=== PATIENT | female | born 1960 | race Caucasian/White ===

== ENCOUNTER 2019-03-28 14:52 | Inpatient (IN) | payer OTHER ==
[~2019-03-28] VITALS: Ht 152.4 cm; Wt 63.0 kg
[2019-03-28] VITALS (12 sets, daily range): BP systolic 100–117; BP diastolic 45–56; PULSE 82–101; RESP 11–23; Ht 152.4 cm; Wt 63.0 kg
[~2019-03-28 14:52] MED LIST: PIPER-TAZO 3.375 GM IV (PMX) 100 ML IVPB SCH
[2019-03-28] MEDS ORDERED: morphine 4 MG/ML VIAL IV STA (15:47)
[2019-03-28] MEDS ORDERED: ONDANSETRON 4 MG INJ IV STA (15:47)
[2019-03-28] MEDS ORDERED: SOD CHLORIDE 0.9% 1,000 ML IV STA (15:47)
--- NOTE | 2019-03-28 15:53 | ERD ---
ER Documentation Chief Complaint Chief Complaint ABD PAIN WITH NAUSEA X 3 DAYS HPI This is a 50-year-old female that presents the emergency department complaining of nausea and abdominal pain for the past 3 days. She states that the pain has been intermittent. The pain is most prominent in the right lower quadrant. When the pain initially started she indicated was more prominent in the epigastric region however is now completely radiated to the right lower quadrant. Her past surgical history includes a cholecystectomy. The patient went to urgent care clinic yesterday and was given Zofran. However she states this is not improved her symptoms. She had no diarrhea. She denies any recent travel or prolonged immobilization has no shortness of breath at rest or exertion. She denies any chest pain or pressure. She states the pain in the left lower quadrant is a sharp shooting pain. Will change in intensity between 4 and 10 out of 10 in intensity. There is no alleviating or exacerbating factors to the pain. She had a decrease in appetite has not had a bowel movement in 2 days but also states she has not had any oral intake due to the severity of the pain. She did not take any analgesic medication at home. ROS All systems reviewed and are negative except as per history of present illness. Medications Home Meds No Active Prescriptions or Reported Meds Allergies Allergies: Coded Allergies: No Known Allergies (Verified Allergy, Unknown, 03/28/19) PMhx/Soc History of Surgery: No Anesthesia Reaction: No Hx Neurological Disorder: No Hx Respiratory Disorders: No Hx Cardiac Disorders: No Hx Psychiatric Problems: No Hx Miscellaneous Medical Probl: No Hx Alcohol Use: No Hx Substance Use: No Hx Tobacco Use: No Physical Exam Vitals Vital Signs Date Temp Pulse Resp B/P (MAP) Pulse Ox O2 O2 Flow FiO2 Time Delivery Rate 03/28/19 93 103/50 93 Room Air 17:45 (67) 03/28/19 81 18 96/63 (74) 100 Room Air 16:14 03/28/19 98.1 71 16 146/79 99 15:03 (101) Physical Exam Constitutional:Well-developed. Well-nourished. HEENT:Normocephalic. Atraumatic.Pupils were equal round reactive to light. Dry mucous membranes.No tonsillar exudates. Neck: No nuchal rigidity. No lymphadenopathy. No posterior cervical spine tenderness or step-offs. Respiratory: Not using accessory muscles of respiration.Lungs were clear to auscultation bilaterally. No rhonchi. No rales. No wheezing. Cardiovascular: Regular rate regular rhythm.No murmurs. No rubs were appreciated.S1, S2 normal. Distal pulses are palpable 2+ bilaterally. GI: Abdomen was soft. Right lower quadrant tenderness. Positive psoas sign positive obturator's non Distended. No pulsatile abdominal masses or bruits. No rebound. No guarding. Bowel sounds were present and normal. Muscle skeletal: Full range of motion of both the upper and lower extremities bilaterally.Normal muscle tone.No assymetrical calf tenderness or swelling. Skin: No petechia, no purpura. No lesions on the palms or the soles of the feet. No maculopapular rash. NEURO: Patient was alert, awake, orientated x3.No facial droop. Gait observed and normal with no ataxia.Speech had regular rate and rhythm. No focal neurological deficits. Result Diagram: 03/28/19 1556 03/28/19 1556 Results 24 hrs Laboratory Tests Test 03/28/19 15:56 White Blood Count 24.3 10^3/ul Red Blood Count 4.67 10^6/ul Hemoglobin 13.8 g/dl Hematocrit 42.3 % Mean Corpuscular Volume 90.6 fl Mean Corpuscular Hemoglobin 29.6 pg Mean Corpuscular Hemoglobin Concent 32.6 g/dl Red Cell Distribution Width 12.4 % Platelet Count 252 10^3/UL Mean Platelet Volume 11.5 fl Immature Granulocytes % 0.500 % Neutrophils % % Segmented Neutrophils % (Manual) 77 % Band Neutrophils % (Manual) 11 % Lymphocytes % % Lymphocytes % (Manual) 6 % Monocytes % % Monocytes % (Manual) 6 % Eosinophils % % Basophils % % Nucleated Red Blood Cells % 0.0 /100WBC Immature Granulocytes # 0.120 10^3/ul Neutrophils # 10^3/ul Neutrophils # (Manual) 19.3 10^3/ul Band Neutrophils # 2.6 10^3/ul Lymphocytes (Manual) 1.4 10^3/ul Lymphocytes # 10^3/ul Monocytes # 10^3/ul Monocytes # (Manual) 1.4 10^3/ul Eosinophils # 10^3/ul Basophils # 10^3/ul Nucleated Red Blood Cells # 10^3/ul Platelet Estimate NORMAL Giant Platelets 2 % Prothrombin Time 14.9 Sec Prothrombin Time Ratio 1.2 INR International Normalized Ratio 1.16 Activated Partial Thromboplast Time 34.7 Sec Urine Color RANJITH Urine Clarity CLOUDY Urine pH 5.0 Urine Specific [place] 1.045 Urine Ketones TRACE mg/dL Urine Nitrite NEGATIVE mg/dL Urine Bilirubin 1+ mg/dL Urine Urobilinogen 2+ mg/dL Urine Leukocyte Esterase TRACE Epifanio/ul Urine Microscopic RBC 12 /HPF Urine Microscopic WBC 26 /HPF Urine Squamous Epithelial Cells MODERATE /HPF Urine Bacteria FEW /HPF Urine Mucus MANY /HPF Urine Hemoglobin NEGATIVE mg/dL Urine Glucose NEGATIVE mg/dL Urine Total Protein 2+ mg/dl Sodium Level 138 mmol/L Potassium Level 3.8 mmol/L Chloride Level 100 mmol/L Carbon Dioxide Level 27 mmol/L Anion Gap 11 Blood Urea Nitrogen 17 mg/dl Creatinine 1.01 mg/dl Est Glomerular Filtrat Rate mL/min 56 mL/min Glucose Level 134 mg/dl Calcium Level 9.6 mg/dl Total Bilirubin 0.9 mg/dl Direct Bilirubin 0.00 mg/dl Indirect Bilirubin 0.9 mg/dl Aspartate Amino Transf (AST/SGOT) 112 IU/L Alanine Aminotransferase (ALT/SGPT) 106 IU/L Alkaline Phosphatase 148 IU/L Troponin I < 0.012 ng/ml Total Protein 8.1 g/dl Albumin 4.4 g/dl Globulin 3.70 g/dl Albumin/Globulin Ratio 1.18 Amylase Level 68 U/L Lipase 40 U/L Current Medications Medications Dose Sig/Zaheer Start Time Status Last (Trade) Ordered Route PRN Stop Time Admin Dose Reason Admin Sodium 1,000 ml @ Q1H STAT 03/28/19 DC 03/28/19 Chloride 1,000 mls/hr IV 15:47 03/28/19 16:06 16:46 Morphine 4 mg ONCE STAT 03/28/19 DC 03/28/19 Sulfate IV 15:47 03/28/19 16:06 (morphine) 15:52 Ondansetron 4 mg ONCE STAT 03/28/19 DC 03/28/19 HCl (Zofran IV 15:47 03/28/19 16:06 Inj) 15:52 IV Flush 10 ml STK-MED 03/28/19 DC (NS 10 ml) ONCE .ROUTE 17:22 03/28/19 17:23 Sodium 100 ml @ ud STK-MED 03/28/19 DC Chloride ONCE .ROUTE 17:22 03/28/19 17:23 Iohexol 150 ml STK-MED 03/28/19 DC (Omnipaque ONCE .ROUTE 17:03/28/19 300mg/ ml) 17:23 Piperacillin 100 ml @ ONCE ONCE 03/28/19 03/28/19 Sod/ 200 mls/hr IVPB 18:00 03/28/19 18:02 Tazobactam 18:29 Sod Procedures/MDM This patient presented to the emergency department with abdominal pain and was seen and evaluated by myself. My differential diagnosis included but was not limited to abdominal aortic aneurysm, appendicitis, pancreatitis, perforated peptic ulcer, perforated viscus, Boerhaave's syndrome or visceral pain such as diverticulitis, DKA, esophagitis, hepatitis or bowel obstruction. The patient was placed on a awake overnight monitor, continuous pulse oximetry, and IV access was established by nursing staff. The patient received intravenous morphine and Zofran. I obtained a 12-lead EKG tracing to her left atypical microinfarction. 12 Lead EKG tracing ordered and reviewed by myself showed: Normal sinus rhythm of 72 bpm and no arrhythmia. RI interval normal. QRS duration normal. No ST segment elevation No ST segment depression. No changes consistent with acute ischemia. The patient had a CT scan that was positive for appendicitis with no perforation. I spoke with Dr. Butt. The patient had leukocytosis. She was given IV Zosyn. She will be going emergently to the operating room given that her symptoms have been present for over 3 days. She will be admitted for observation to the medical surgical floor under the care of the hospitalist Dr. Bai. The patient was made n.p.o. and has not eaten for roughly 24 hours. Critical Care: Time: 45 minutes Treatments/Evaluations: Close monitoring and treatment of unstable vital signs, cardiorespiratory, and neurologic status, while maintaining tight balance of fluid, respiratory, and cardiac interventions. Time does not include performing any of the above billable procedures. Departure Diagnosis: Primary Impression: Appendicitis Appendicitis type: acute appendicitis Acute appendicitis type: unspecified acute appendicitis type Qualified Codes: K35.80 - Unspecified acute appendicitis Condition: Serious FLEX POLANCO MD Mar 28, 2019 15:53
[2019-03-28] MEDS ORDERED: IOHEXOL 300MG/ML 150 ML BTL ONE (17:22)
[2019-03-28] MEDS ORDERED: SOD CHLORIDE 0.9% 100 ML ONE (17:22)
[2019-03-28] MEDS ORDERED: PIPER-TAZO 3.375 GM IV (PMX) 100 ML IVPB ONE (18:00)
--- NOTE | 2019-03-28 18:07 | CONS ---
Assessment/Plan Assessment/Plan Assessment/Plan (Daily) Acute appendicitis I discussed laparoscopic, possible open, appendectomy with the patient All benefits, risks, alternatives discussed All questions answered Consultation Date/Type/Reason Admit Date/Time Date/Time of Note DATE: 03/28/19 TIME: 18:07 Hx of Present Illness The patient is a 58 yo F developed epigastric abdominal pain starting Friday night. She thought it was related to what she ate. However, the pain began to localize the right lower quadrant. The pain persisted and was worse with move ment. She has anorexia since Friday. She had emesis but no vomiting. She denies constipation or diarrhea. Denies fevers or chills. 14 point review of systems was performed. Pertinent negatives and positives per HPI. Past Medical History Home Meds No Active Prescriptions or Reported Meds Medications Current Medications Piperacillin Sod/ Tazobactam Sod 100 ml @ 200 mls/hr ONCE ONCE IVPB Last administered on 03/28/19at 18:02; Admin Dose 200 MLS/HR; Start 03/28/19 at 18:00; Stop 03/28/19 at 18:29 Allergies: Coded Allergies: No Known Allergies (Verified Allergy, Unknown, 03/28/19) Past Surgical History Past Surgical Hx: other Family History Significant Family History: no pertinent family hx Social History Alcohol Use: none Smoking Status: Never smoker Drug Use: none Exam/Review of Systems Exam Vitals Vital Signs Date Temp Pulse Resp B/P (MAP) Pulse Ox O2 O2 Flow FiO2 Time Delivery Rate 03/28/19 93 103/50 93 Room Air 17:45 (67) 03/28/19 18 16:14 03/28/19 98.1 15:03 Constitutional: alert, oriented, well developed Psych: no complaints Head: normocephalic, atraumatic Eyes: nl conjunctiva Neck: supple Respiratory: clear to auscultation, normal air movement Cardiovascular: regular rate and rhythm Gastrointestinal: soft, other (Nondistended but significant right lower quadrant tenderness) Musculoskeletal: nl extremities to inspection, nl gait and stance Neurological: VIDEO LIBRARY ASSISTANT II-XII intact, nl mental status Skin: nl turgor Lymph: nl lymph nodes Results Result Diagram: 03/28/19 1556 03/28/19 1556 Results 24hrs Laboratory Tests Test 03/28/19 15:56 White Blood Count 24.3 #H Red Blood Count 4.67 Hemoglobin 13.8 Hematocrit 42.3 Mean Corpuscular Volume 90.6 Mean Corpuscular Hemoglobin 29.6 Mean Corpuscular Hemoglobin Concent 32.6 Red Cell Distribution Width 12.4 Platelet Count 252 Mean Platelet Volume 11.5 H Immature Granulocytes % 0.500 H Neutrophils % Segmented Neutrophils % (Manual) 77 Band Neutrophils % (Manual) 11 H Lymphocytes % Lymphocytes % (Manual) 6 L Monocytes % Monocytes % (Manual) 6 Eosinophils % Basophils % Nucleated Red Blood Cells % 0.0 Immature Granulocytes # 0.120 H Neutrophils # Neutrophils # (Manual) 19.3 H Band Neutrophils # 2.6 H Lymphocytes (Manual) 1.4 Lymphocytes # Monocytes # Monocytes # (Manual) 1.4 H Eosinophils # Basophils # Nucleated Red Blood Cells # Platelet Estimate NORMAL Giant Platelets 2 H Prothrombin Time 14.9 Prothrombin Time Ratio 1.2 INR International Normalized Ratio 1.16 Activated Partial Thromboplast Time 34.7 Urine Color RANJITH Urine Clarity CLOUDY A Urine pH 5.0 Urine Specific [place] 1.045 H Urine Ketones TRACE A Urine Nitrite NEGATIVE Urine Bilirubin 1+ H Urine Urobilinogen 2+ H Urine Leukocyte Esterase TRACE A Urine Microscopic RBC 12 H Urine Microscopic WBC 26 H Urine Squamous Epithelial Cells MODERATE Urine Bacteria FEW A Urine Mucus MANY A Urine Hemoglobin NEGATIVE Urine Glucose NEGATIVE Urine Total Protein 2+ H Sodium Level 138 Potassium Level 3.8 Chloride Level 100 Carbon Dioxide Level 27 Anion Gap 11 Blood Urea Nitrogen 17 Creatinine 1.01 H Est Glomerular Filtrat Rate mL/min 56 L Glucose Level 134 Calcium Level 9.6 Total Bilirubin 0.9 Direct Bilirubin 0.00 Indirect Bilirubin 0.9 Aspartate Amino Transf (AST/SGOT) 112 H Alanine Aminotransferase (ALT/SGPT) 106 H Alkaline Phosphatase 148 H Troponin I < 0.012 Total Protein 8.1 Albumin 4.4 Globulin 3.70 H Albumin/Globulin Ratio 1.18 Amylase Level 68 Lipase 40 Imaging Imaging Patient: VALENTINA HAMPTON : 1960 Age: 58 Sex: F MR #: [id number] DOS: 03/28/19 1547 Ordering MD: FLEX POLANCO MD Location: E/R Room/Bed: PROCEDURE: CT Abdomen and pelvis with contrast. CLINICAL INDICATION: Abdominal pain. TECHNIQUE: CT scan of the abdomen and pelvis with contrast was performed on a multi-detector high-resolution CT scanner. The patient was scanned following the uncomplicated administration of 100 cc of Omnipaque 300 intravenous contrast. Coronal and sagittal reformatted images were obtained from the axial source images. Images were reviewed on a high-resolution PACS workstation. DICOM images are available. One or more of the following dose reduction techniques were used: - Automated exposure control. - Adjustment of the mA and/or kV according to patient size. - Use of iterative reconstruction technique. Exam CTD/vol = 7.58 mGy. Total exam DLP = 439.89 mGy-cm. COMPARISON: None. FINDINGS: Evaluation of the lung bases demonstrates no pleural or parenchymal disease. Abdomen: The liver is normal in size. There is a cyst within the left lobe of the liver measuring 1.6 x 2.6 cm. The patient status post cholecystectomy with mild dilatation of the biliary tree. The spleen, pancreas and bilateral adrenal glands are within normal limits. Bilateral kidneys are normal in size with symmetric enhancement. There are small right renal cysts. No hydronephrosis or hydroureter. There is no retroperitoneal adenopathy. The abdominal aorta is of normal caliber. There is a distended and thick-walled appendix extending medial to the cecum measuring up to 15 mm in diameter with mild to moderate adjacent stranding. There is no bowel obstruction or free air. There are scattered sigmoid diverticuli. Pelvis: The bladder is unremarkable. The uterus and adnexa are within normal limits. There is moderate pelvic stranding and mild free fluid. There is no significant pelvic adenopathy. Evaluation of the osseous structures demonstrates no suspicious lytic or blastic lesion. IMPRESSION: Appendicitis. Moderate pelvic stranding and mild free fluid. Scattered sigmoid diverticuli. Hepatic cyst. Status post cholecystectomy with mild dilatation of the biliary tree. Medications Medication Current Medications Piperacillin Sod/ Tazobactam Sod 100 ml @ 200 mls/hr ONCE ONCE IVPB Last administered on 03/28/19at 18:02; Admin Dose 200 MLS/HR; Start 03/28/19 at 18:00; Stop 03/28/19 at 18:29 AMOS ARNOLD MD Mar 28, 2019 18:07
--- NOTE | 2019-03-28 18:51 | HP ---
Date/Time of Note Date/Time of Note DATE: 03/28/19 TIME: 18:42 Assessment/Plan VTE Prophylaxis SCD applied (from Nsg): Yes Pharmacological prophylaxis: NA/contraindicated Pharm contraindication: surgical contra Lines/Catheters IV Catheter Type (from Nrsg): Saline Lock Assessment/Plan Assessment/Plan 1. Acute appendicitis - Seen on CT scan A/P - Surgery on board and plans for OR tonight - Will keep NPO, IVF and empiric antibiotics - cleared from medical standpoint for surgical intervention. Tolerated anesthesia in the past and no history of coagulopathy - pain control 2. leukocytosis - secondary to #1 3. elevated LFT - most likely secondary to #1 and dehydration - will trend 4. ?UTI - asymptomatic - UA noted and urine cx ordered - already on antibiotics 5. Diet - NPO 6. Disposition - Admit to med/surg for surgical intervention for acute appendicitis. Following surgery will advance diet and once tolerating and remains stable, d/c home after cleared by general surgery Result Diagram: 03/28/19 1556 03/28/19 1556 Results 24hrs Laboratory Tests Test 03/28/19 15:56 White Blood Count 24.3 #H Red Blood Count 4.67 Hemoglobin 13.8 Hematocrit 42.3 Mean Corpuscular Volume 90.6 Mean Corpuscular Hemoglobin 29.6 Mean Corpuscular Hemoglobin Concent 32.6 Red Cell Distribution Width 12.4 Platelet Count 252 Mean Platelet Volume 11.5 H Immature Granulocytes % 0.500 H Neutrophils % Segmented Neutrophils % (Manual) 77 Band Neutrophils % (Manual) 11 H Lymphocytes % Lymphocytes % (Manual) 6 L Monocytes % Monocytes % (Manual) 6 Eosinophils % Basophils % Nucleated Red Blood Cells % 0.0 Immature Granulocytes # 0.120 H Neutrophils # Neutrophils # (Manual) 19.3 H Band Neutrophils # 2.6 H Lymphocytes (Manual) 1.4 Lymphocytes # Monocytes # Monocytes # (Manual) 1.4 H Eosinophils # Basophils # Nucleated Red Blood Cells # Platelet Estimate NORMAL Giant Platelets 2 H Prothrombin Time 14.9 Prothrombin Time Ratio 1.2 INR International Normalized Ratio 1.16 Activated Partial Thromboplast Time 34.7 Urine Color RANJITH Urine Clarity CLOUDY A Urine pH 5.0 Urine Specific [place] 1.045 H Urine Ketones TRACE A Urine Nitrite NEGATIVE Urine Bilirubin 1+ H Urine Urobilinogen 2+ H Urine Leukocyte Esterase TRACE A Urine Microscopic RBC 12 H Urine Microscopic WBC 26 H Urine Squamous Epithelial Cells MODERATE Urine Bacteria FEW A Urine Mucus MANY A Urine Hemoglobin NEGATIVE Urine Glucose NEGATIVE Urine Total Protein 2+ H Sodium Level 138 Potassium Level 3.8 Chloride Level 100 Carbon Dioxide Level 27 Anion Gap 11 Blood Urea Nitrogen 17 Creatinine 1.01 H Est Glomerular Filtrat Rate mL/min 56 L Glucose Level 134 Calcium Level 9.6 Total Bilirubin 0.9 Direct Bilirubin 0.00 Indirect Bilirubin 0.9 Aspartate Amino Transf (AST/SGOT) 112 H Alanine Aminotransferase (ALT/SGPT) 106 H Alkaline Phosphatase 148 H Troponin I < 0.012 Total Protein 8.1 Albumin 4.4 Globulin 3.70 H Albumin/Globulin Ratio 1.18 Amylase Level 68 Lipase 40 HPI/ROS Admit Date/Time Admit Date/Time 03/28/19 Hx of Present Illness 58 yo F with no significantly past medical history presents to ED with worsening abdominal pain. Patient states she started having epigastric pain on Friday after eating popcorn with spice sprinkled on top. Pain traveled to the lower quadrants, nothing made the pain better, worse with movement. She has not been able to eat since Friday due to the pain. She admits to associated nausea but no vomiting. Denies any chest pain, shortness of breath, dizziness, cons tipation, diarrhea, or urinary issues. ROS All 12 systems reviewed and pertinent positives as per HPI. All others negative. Constitutional: nausea; No chills, No fatigue Eyes: No discharge ENT: No congestion Respiratory: No cough, No shortness of breath, No sputum, No wheezing Cardiovascular: No chest pain, No lightheadedness, No palpitations Gastrointestinal: pain, nausea; No constipation, No diarrhea, No vomiting Genitourinary: no complaints Musculoskeletal: no complaints Skin: No laceration, No rash Neurologic: No confusion, No focal-weakness, No syncope Endocrine: no complaints Lymphatic: no complaints Psychological: nl mood/affect Immunologic: no complaints PMH/Family/Social Past Medical History Medical History: no pertinent history Coded Allergies: No Known Allergies (Verified Allergy, Unknown, 03/28/19) Past Surgical History Past Surgical Hx: cholecystectomy, other Family History Significant Family History: no pertinent family hx Social History Alcohol Use: none Smoking Status: Never smoker Drug Use: none Exam/Review of Systems Vital Signs Vitals Vital Signs Date Temp Pulse Resp B/P (MAP) Pulse Ox O2 O2 Flow FiO2 Time Delivery Rate 03/28/19 97.9 80 18 95/75 (82) 100 Room Air 18:15 Exam Exam General: Patient currently lying in bed, mild distress due to pain HEENT: Atraumatic, normocephalic. The pupils are equal, round and reactive. Extraocular motor are intact Neck: Supple with full range of motion. No rigidity or meningismus Chest: Nontender Lungs: Clear to auscultation bilaterally no crackles rales or wheezing Heart: Normal S1-S2, Regular rhythm and rate. No murmur, S3, or S4 Abdomen: Soft , tender lower quadrants, nondistended , bowel sounds are present. No guarding no rebound tenderness , No masses or organomegaly. No costovertebral temporal angle mass Extremities: moving all extremities.no edema, cyanosis, or clubbing Skin: warm, dry, no rashes or lesions Neurologic: Normal mental status, speech normal, cranial nerves II through XII are intact, motor and sensation intact Additional Comments No home medications PROCEDURE: CT Abdomen and pelvis with contrast. CLINICAL INDICATION: Abdominal pain. TECHNIQUE: CT scan of the abdomen and pelvis with contrast was performed on a multi-detector high-resolution CT scanner. The patient was scanned following the uncomplicated administration of 100 cc of Omnipaque 300 intravenous contrast. Coronal and sagittal reformatted images were obtained from the axial source images. Images were reviewed on a high-resolution PACS workstation. DICOM images are available. One or more of the following dose reduction techniques were used: - Automated exposure control. - Adjustment of the mA and/or kV according to patient size. - Use of iterative reconstruction technique. Exam CTD/vol = 7.58 mGy. Total exam DLP = 439.89 mGy-cm. COMPARISON: None. FINDINGS: Evaluation of the lung bases demonstrates no pleural or parenchymal disease. Abdomen: The liver is normal in size. There is a cyst within the left lobe of the liver measuring 1.6 x 2.6 cm. The patient status post cholecystectomy with mild dilatation of the biliary tree. The spleen, pancreas and bilateral adrenal glands are within normal limits. Bilateral kidneys are normal in size with symmetric enhancement. There are small right renal cysts. No hydronephrosis or hydroureter. There is no retroperitoneal adenopathy. The abdominal aorta is of normal caliber. There is a distended and thick-walled appendix extending medial to the cecum measuring up to 15 mm in diameter with mild to moderate adjacent stranding. There is no bowel obstruction or free air. There are scattered sigmoid diverticuli. Pelvis: The bladder is unremarkable. The uterus and adnexa are within normal limits. There is moderate pelvic stranding and mild free fluid. There is no significant pelvic adenopathy. Evaluation of the osseous structures demonstrates no suspicious lytic or blastic lesion. IMPRESSION: Appendicitis. Moderate pelvic stranding and mild free fluid. Scattered sigmoid diverticuli. Hepatic cyst. Status post cholecystectomy with mild dilatation of the biliary tree. .Alex Wilson MD, Date Time Electronically viewed and signed by .Alex Wilson MD, on 03/28/2019 17:57 TOMI AMOR MD Mar 28, 2019 18:51
[2019-03-28] MEDS ORDERED: ONDANSETRON 4 MG INJ IV PRN ×3 (19:00→19:30)
[2019-03-28] MEDS ORDERED: HYDROCODONE/APAP (5/325) TAB PO PRN ×2 (19:00)
[2019-03-28] MEDS ORDERED: ACETAMINOPHEN 325 MG TAB PO PRN (19:00)
[2019-03-28] MEDS ORDERED: NACL 0.9% 3 ML SYG IV SCH (19:00)
[2019-03-28] MEDS ORDERED: morphine 2 MG INJ IV PRN ×2 (19:00→19:30)
[2019-03-28] MEDS ORDERED: LIDOCAINE 1%/EPI (1:100,000) (MDV) 20 ML ONE (19:01)
[2019-03-28] MEDS ORDERED: BUPIVACAINE 0.25% (MPF) 30 ML INJ ONE (19:01)
--- NOTE | 2019-03-28 19:06 | SIPON ---
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
--- NOTE | 2019-03-28 19:10 | OPR ---
Date/Time of Note Date/Time of Note DATE: 03/28/19 TIME: 19:08 Operative Report Preoperative Diagnosis Acute appendicitis Postoperative Diagnosis Same Operation/Procedure Performed Laparoscopic appendectomy Surgeon see signature line Lath Tier None Anesthesia Type: general Anesthesiologist: LARRY HEWITT MD Estimated Blood Loss: minimal Transfusion none Specimen Appendix Grafts/Implants none Tubes/Drains 19 Chinese round Jeffrey drain in the right lower quadrant and pelvis Complications none Pt Condition Post Procedure: stable Disposition: PACU Indications The patient is a 58-year-old female with acute appendicitis. I discussed laparoscopic, possible open, appendectomy with the patient. All benefits, risks, alternatives discussed in detail. All questions were answered. The patient elected to proceed. Procedure Description The patient was brought to operative room placed supine on the table. After preop antibiotics and SCDs were applied, the patient was intubated. The abdomen was cleaned, prepped, draped in usual sterile fashion. All incisions were infiltrated with half percent lidocaine with epinephrine. A 5 mm incision was made in the umbilicus. Using a 5 by laparoscope obtained trocar, the abdomen was was entered and insufflated to 15 mmHg CO2. The following trochars in place and direct vision: A right lower quadrant 5 mm left lower quadrant 12 mm There was a fair amount of omentum adherent to the right lower quadrant. This was brought up bluntly. I then saw the cecum and the appendix emanating from the cecum. The appendix was entering the pelvis underneath the right ovary. The appendix was then bluntly brought out from the pelvis. At this point, noted there was a perforation of the appendix with fair amount of pus in the pelvis. The the base was not involved. I made a rent through the mesentery at the base of the appendix. I then divided the base of the appendix to the cecum with a 35 mm Endo linear cutter white load. . I was able to elevate the appendix. The mesentery was then divided with a 35 mm Endo linear cutter white load. The appendix was placed in Endo Catch bag removed and the 12 mm trocar site. I irrigated out the right lower quadrant and pelvis until effluent was clear. I visualized the staple lines. They were hemostatic. Due to the pus and perforation, I placed a 19 Chinese round Jeffrey in the right l ower quadrant pelvis. It exited through the right lower quadrant trocar site was sutured the skin with a 2-0 nylon. I desufflated the abdomen and removed all trochars. The fascia of the 12 mm trocar site was closed with 0 Vicryl. Skin incisions were closed with 4-0 Monocryl, Mastisol, and Steri-Strips marked muscle Steri-Strips. The patient tolerated the procedure well, was extubated ER, and transferred to the recovery room in stable condition. AMOS ARNOLD MD Mar 28, 2019 19:10
[2019-03-28] MEDS ORDERED: FENTAnyl 50 MCG/ML VIAL ONE (19:25)
[2019-03-28] MEDS ORDERED: ROCURONIUM 50 MG INJ ONE (19:25)
[2019-03-28] MEDS ORDERED: ROPIVACAINE 0.2% 20 ML VIAL ONE (19:25)
[2019-03-28] MEDS ORDERED: PROPOFOL 20 ML ONE (19:25)
[2019-03-28] MEDS ORDERED: ROPIVACAINE 0.5 % 30 ML VIAL ONE (19:25)
[2019-03-28] MEDS ORDERED: MIDAZOLAM 1 MG/ML 2 ML INJ ONE (19:25)
[2019-03-28] MEDS ORDERED: EPHEDrine 25 MG/5 ML SYG ONE (19:25)
[2019-03-28] MEDS ORDERED: DIPHENHYDRAMINE 50 MG INJ IV PRN (19:30)
[2019-03-28] MEDS ORDERED: OXYCODONE/ACETAMINOPHEN (5/325) TAB PO PRN (19:30)
[2019-03-28] MEDS ORDERED: IBUPROFEN 600 MG TAB PO PRN (19:30)
[2019-03-28] MEDS ORDERED: LABETALOL HCL 20MG INJ IV PRN (19:30)
[2019-03-28] MEDS ORDERED: METOCLOPRAMIDE 10 MG INJ IV PRN (19:30)
[2019-03-28] MEDS ORDERED: FENTAnyl 50 MCG/ML VIAL IV PRN ×3 (19:30)
[2019-03-28] MEDS ORDERED: HYDROmorphONE 1 MG/5 ML IV SYRINGE IV PRN ×3 (19:30)
[2019-03-28] MEDS ORDERED: MEPERIDINE 25 MG INJ IV PRN (19:30)
[2019-03-28] MEDS ORDERED: EPHEDrine 25 MG/5 ML SYG IV PRN (19:30)
--- NOTE | 2019-03-28 19:32 | PREAC ---
Date/Time of Note Date/Time of Note DATE: 03/28/19 TIME: 19:30 Anesthesia Eval and Record Evaluation Time Pre-Procedure Interview DATE: 03/28/19 TIME: 19:30 Age 58 Sex female NPO: 8 hrs Preoperative diagnosis Acute Appendicitis Planned procedure Laparoscopic Appendectomy Past Medical History Past Medical History: None Surgery & Anesthesia Issues No known issue Meds Anticoagulation: No Beta Connie within 24 hr: No Reason Beta Connie not given: Pt. not on B-Connie No Active Prescriptions or Reported Meds Current Medications IV Flush (NS 3 ml) 3 ml PER PROTOCOL IV ; Start 03/28/19 at 19:00 Ondansetron HCl (Zofran Inj) 4 mg Q6H PRN IV NAUSEA/VOMITING; Start 03/28/19 at 19:00 Acetaminophen (Tylenol Tab) 650 mg Q6H PRN PO .PAIN 1-3 OR TEMP; Start 03/28/19 at 19:00 Acetaminophen/ Hydrocodone Bitart ([place] (5/325)) 1 tab Q6H PRN PO .MOD PAIN 4- 6; Start 03/28/19 at 19:00 Acetaminophen/ Hydrocodone Bitart ([place] (5/325)) 2 tab Q6H PRN PO .SEVERE PAIN 7-10; Start 03/28/19 at 19:00 Morphine Sulfate (morphine) 2 mg Q4H PRN IV .SEVERE PAIN 7-10; Start 03/28/19 at 19:00 Famotidine (Pepcid Iv) 20 mg Q12 IV ; Start 03/28/19 at 21:00 Piperacillin Sod/ Tazobactam Sod 100 ml @ 200 mls/hr Q8 IVPB ; Start 03/28/19 at 00:00 Piperacillin Sod/ Tazobactam Sod 100 ml @ 200 mls/hr Q6 IVPB ; Start 03/29/19 at 00:00; Status UNV Ondansetron HCl (Zofran Inj) 4 mg Q6H PRN IV NAUSEA AND/OR VOMITING; Start 03/28/19 at 19:30; Status UNV Acetaminophen (Tylenol Tab) 650 mg Q6H PRN PO PAIN LEVEL 1-3 OR FEVER; Start 03/28/19 at 19:30; Status UNV Ibuprofen (Motrin) 600 mg Q6H PRN PO PAIN LEVEL 1-3; Start 03/28/19 at 19:30; Status UNV Morphine Sulfate (morphine) 2 mg Q2H PRN IV PAIN LEVEL 8-10; Start 03/28/19 at 19:30; Status UNV Acetaminophen/ Hydrocodone Bitart ([place] (5/325)) 1 tab Q6H PRN PO PAIN LEVEL 4-7; Start 03/28/19 at 19:30; Status UNV Potassium Chloride/Dextrose/ Sod Cl 1,000 ml @ 100 mls/hr Q10H IV ; Start 03/28/19 at 19:10; Status UNV Enoxaparin Sodium (Lovenox) 40 mg DAILY@07 SC ; Start 03/29/19 at 07:00; Status UNV Meds reviewed: Yes Allergies Coded Allergies: No Known Allergies (Verified Allergy, Unknown, 03/28/19) Allergies Reviewed: Yes Labs/Studies Labs Reviewed: Reviewed by anesthesiologist Result Diagram: 03/28/19 1556 03/28/19 1556 Laboratory Tests 03/28/19 15:56 test: N/A Studies: ECG (n/a), CXR (n/a) Pre-procedure Exam Last vitals Vital Signs Date Temp Pulse Resp B/P (MAP) Pulse Ox O2 O2 Flow FiO2 Time Delivery Rate 03/28/19 97.9 80 18 95/75 (82) 100 Room Air 18:15 Airway: Adequate mouth opening, Adequate thyromental dist Mallampati: Mallampati II Teeth: Normal Lung: Normal Heart: Normal ASA Physical Status ASA physical status: 2 Emergency: E Planned Anesthetic General/MAC: ETT Nerve block: TAP (bilateral) Planned Pain Management Single shot nerve block, Parenteral pain med Pre-operative Attestations Prior to commencing anesthesia and surgery, the patient was re-evaluated, there was verification of: *The patient's identity *The results of appropriate recent lab work and preoperative vital signs *The above evaluation not changing prior to induction *Anesthetic plan, risk benefits, alternative and complications discussed with patient/family; questions answered; patient/family understands, accepts and wishes to proceed. LARRY HEWITT MD Mar 28, 2019 19:32
[2019-03-28] MEDS ORDERED: SUGAMMADEX SODIUM 200 MG/2 ML VIAL IV ONE (20:12)
[2019-03-28] MEDS ORDERED: CEFAZOLIN 1 GM INJ ONE (20:12)
[2019-03-28] MEDS ORDERED: KETOROLAC 30 MG INJ ONE (20:12)
[2019-03-28] MEDS ORDERED: ONDANSETRON 4 MG INJ ONE (20:12)
[2019-03-28] MEDS ORDERED: METOCLOPRAMIDE 10 MG INJ ONE (20:12)
[2019-03-28] MEDS ORDERED: DEXAMETHASONE 4 MG/ML 5 ML INJ ONE (20:12)
--- NOTE | 2019-03-28 20:33 | PAC ---
Date/Time of Note Date/Time of Note DATE: 03/28/19 TIME: 20:33 Post-Anesthesia Notes Post-Anesthesia Note Last documented vital signs Vital Signs Date Temp Pulse Resp B/P (MAP) Pulse Ox O2 O2 Flow FiO2 Time Delivery Rate 03/28/19 97.9 80 18 95/75 (82) 100 Room Air 20:35 Activity: WNL Respiratory function: WNL Cardiovascular function: WNL Mental status: Baseline Pain reasonably controlled: Yes Hydration appropriate: Yes Nausea/Vomiting absent: Yes LARRY HEWITT MD Mar 28, 2019 20:33
[2019-03-28] MEDS: FAMOTIDINE 20 MG INJ IV SCH (22:52)
[2019-03-28] MEDS: D5-NS + KCL 20 MEQ 1,000 ML IV SCH (22:52)
[2019-03-28] MEDS: PIPER-TAZO 3.375 GM IV (PMX) 100 ML IVPB SCH (22:57)
[2019-03-29 02:15] VITALS: BP 93/51; PULSE 80; RESP 16
[2019-03-29] MEDS: D5-NS + KCL 20 MEQ 1,000 ML IV SCH (05:10)
[2019-03-29] MEDS: PIPER-TAZO 3.375 GM IV (PMX) 100 ML IVPB SCH ×3 (06:45→18:58)
[2019-03-29] MEDS: ENOXAPARIN 40 MG/0.4 ML SYG SC SCH (06:51)
[2019-03-29] MEDS: ACETAMINOPHEN 325 MG TAB PO PRN ×2 (06:58→14:46)
[2019-03-29 07:56] VITALS: BP 90/57; PULSE 82; RESP 18
[2019-03-29] MEDS: FAMOTIDINE 20 MG INJ IV SCH ×2 (09:58→21:42)
--- NOTE | 2019-03-29 13:07 | PN ---
Date/Time of Note Date/Time of Note DATE: 03/29/19 TIME: 13:07 Objective Vitals Vital Signs Date Temp Pulse Resp B/P (MAP) Pulse Ox O2 O2 Flow FiO2 Time Delivery Rate 03/29/19 98.1 82 18 90/57 (68) 99 07:56 03/28/19 Nasal 2.0 21:25 Cannula Intake and Output 03/28/19 03/28/19 03/29/19 1515:00 23:00 07:00 IntakeIntake Total 1400 ml 800 ml OutputOutput Total 30 ml 80 ml BalanceBalance 1370 ml 720 ml Results Result Diagram: 03/28/19 1556 03/29/19 0428 Medications Medications Current Medications Famotidine (Pepcid Iv) 20 mg Q12 IV Last administered on 03/29/19at 09:58; Admin Dose 20 MG; Start 03/28/19 at 21:00 Piperacillin Sod/ Tazobactam Sod 100 ml @ 200 mls/hr Q6 IVPB Last administered on 03/29/19at 06:45; Admin Dose 200 MLS/HR; Start 03/29/19 at 00:00 Ondansetron HCl (Zofran Inj) 4 mg Q6H PRN IV NAUSEA AND/OR VOMITING Last administered on 03/29/19at 06:46; Admin Dose 4 MG; Start 03/28/19 at 19:30 Acetaminophen (Tylenol Tab) 650 mg Q6H PRN PO PAIN LEVEL 1-3 OR FEVER Last administered on 03/29/19at 06:58; Admin Dose 650 MG; Start 03/28/19 at 19:30 Ibuprofen (Motrin) 600 mg Q6H PRN PO PAIN LEVEL 1-3; Start 03/28/19 at 19:30 Morphine Sulfate (morphine) 2 mg Q2H PRN IV PAIN LEVEL 8-10; Start 03/28/19 at 19:30 Acetaminophen/ Hydrocodone Bitart ([place] (5/325)) 1 tab Q6H PRN PO PAIN LEVEL 4-7; Start 03/28/19 at 19:30 Enoxaparin Sodium (Lovenox) 40 mg DAILY@07 SC Last administered on 03/29/19at 06:51; Admin Dose 40 MG; Start 03/29/19 at 07:00 Sodium Chloride 1,000 ml @ 100 mls/hr Q10H IV ; Start 03/29/19 at 13:00 VTE Prophylaxis Risk score (from Ns)>0 risk: 6 SCD applied (from Ns): No SCD contraindication: other Lines/Catheters IV Catheter Type: Murray in Place: No Assessment/Plan Hospital Course Subjective Patient doing okay, still has fairly significant abdominal pain however Objective Physical exam General: Patient is laying in bed and answers questions appropriately Mentation: Patient is alert and oriented 4, Head: Normocephalic atraumatic Eyes: EOMI, pupils reactive to light Neck: Supple, nontender, midline Respiratory: Clear to auscultation bilaterally Cardiovascular: regular rate, no obvious murmurs Gastrointestinal:tender to palpation, bowel sounds heard. Neurological: Moves all extremities spontaneously Skin: DOMINGA drain with drainage Assessment/Plan 1. Acute appendicitis, perforated -Status post lap appendectomy, with drain -Continue broad-spectrum IV antibiotic -Infectious disease consulted 2. leukocytosis - secondary to #1 3. elevated LFT - most likely secondary to #1 and dehydration - will trend, hepatitis panel pending 4. ?UTI - asymptomatic - UA noted and urine cx ordered - already on antibiotics 5. Diet -Regular for now 6. Disposition -Patient will need a few days of IV antibiotics at the very least, monitor daily. Infectious disease consultation pending TORRES AWAD Mar 29, 2019 13:07
[2019-03-29] MEDS: SOD CHLORIDE 0.9% 1,000 ML IV SCH (14:32)
[2019-03-29 15:22] VITALS: BP 97/54; PULSE 78; RESP 19
--- NOTE | 2019-03-29 17:19 | CONS ---
DATE OF ADMISSION: 03/29/2019 DATE OF CONSULTATION: 03/29/2019 REASON FOR CONSULTATION: Antibiotic management. HISTORY OF PRESENT ILLNESS: Deepika Bah is a 58-year-old female who [facility] on [facility]/28 with abdominal pain and nausea for 3 days. Her abdominal pain was intermitten t. It was most prominent in the right lower quadrant. It started initially in the epigastric region but now is in the right lower quadrant. Her past surgical history includes a cholecystectomy. She went to urgent care, was given Zofran but did not improve her symptomatology. PAST MEDICAL HISTORY: As outlined. FAMILY HISTORY: Noncontributory. SOCIAL HISTORY: She does not smoke, drink or abuse drugs. ALLERGIES: NONE TO PENICILLIN, SULFA OR FOODS. MEDICATIONS: Per chart. REVIEW OF SYSTEMS: As per HPI. ANCILLARY LABORATORY DATA: White count of 24.3 with 77% neutrophils, 11% bands, H and H of 13.8 and 42.3, platelet count 352,000. BUN and creatinine 17/1.01, blood sugar of 134. HOSPITAL COURSE: The patient presented with symptoms of appendicitis. She could have had abdominal aortic aneurysm, pancreatitis, perforated ulcer and numerous other problems. CT scan was positive fo r appendicitis with no perforation. spoke with Dr. Butt. As noted, white count was 24.3 . The patient was started on Zosyn. She was placed on n.p.o. The patient was taken to surgery on 03/28. She had a laparoscopic appendectomy. It was noted that t here was a perforation of the appendix with fair amount of pus in the pelvis. The base was not invol gillian. He made a rent through the mesentery at the base of the appendix and divided the base of the ap pendix and the cecum. He elevated the appendix and then removed it. He placed a 19-Wallisian round Garth ke catheter in the right lower quadrant because of the perforation itself. The patient had mixed Gra m-positive organisms in the urine. The patient is on Zosyn. The patient is seen by Dr. Herrera today. White count is still 24.3. The patient is doing better, still with some significant abdominal pain. PHYSICAL EXAMINATION: GENERAL: She is lying in bed in no acute distress. VITAL SIGNS: Stable. She is afebrile. SKIN: Without generalized rash. HEENT: Within normal limits. NECK: Supple. LYMPH NODES: None palpable. CHEST: Decreased breath sounds at the bases. HEART: Without murmur or gallop. ABDOMEN: Soft, nontender, without organosplenomegaly or masses. She has tenderness in the right low er quadrant. She has a DOMINGA drain with drainage in the right lower quadrant. EXTREMITIES: Without cyanosis, clubbing or edema. RECTAL: Deferred. GENITAL: Deferred. NEUROLOGIC: No focal neurological abnormality. IMPRESSION AND PLAN: The patient has acute appendicitis with perforation, significant leukocytosis. She is on Zosyn which is appropriate. Hopefully, we will get some cultures of the drainage from the appendix. I do not see anything in the chart, however, to confirm this. I will dictate my findings to the hospitalist and to Dr. Butt. Dictated By: NAHID HAYNES MD, JD/ERUM Conf#: [id number] DID#: [id number] CC: TOMI AMOR MD;*EndCC*
--- NOTE | 2019-03-29 17:41 | PN ---
Date/Time of Note Date/Time of Note DATE: 03/29/19 TIME: 17:39 Assessment/Plan Lines/Catheters IV Catheter Type (from Nrs): Peripheral IV Murray in Place (from Nrsg): No Assessment/Plan Assessment/Plan Postop day #1 for acute perforated appendicitis Afebrile since surgery. White count 22 If afebrile overnight and white count decreases, possible discharge tomorrow on 7 days of Augmentin Will discharge home with drain. Improving Subjective 24 Hr Interval Summary Constitutional: no complaints, improved Feeding: advancing diet Pain Control: moderate Exam/Review of Systems Vital Signs Vitals Vital Signs Date Temp Pulse Resp B/P (MAP) Pulse Ox O2 O2 Flow FiO2 Time Delivery Rate 03/29/19 98.1 78 19 97/54 (68) 99 15:22 03/28/19 Nasal 2.0 21:25 Cannula Intake and Output 03/28/19 03/28/19 03/29/19 1515:00 23:00 07:00 IntakeIntake Total 1400 ml 800 ml OutputOutput Total 30 ml 80 ml BalanceBalance 1370 ml 720 ml Exam Constitutional: alert, oriented, well developed Gastrointestinal: soft, other (Lesly-incisional tenderness present) Results Result Diagram: 03/29/19 1343 03/29/19 0428 AMOS ARNOLD MD Mar 29, 2019 17:41
[2019-03-29 20:07] VITALS: BP 101/57; PULSE 69; RESP 18
[2019-03-30 02:15] VITALS: BP 107/55; PULSE 69; RESP 17
[2019-03-30] MEDS: SOD CHLORIDE 0.9% 1,000 ML IV SCH ×3 (04:19→17:09)
[2019-03-30] MEDS: PIPER-TAZO 3.375 GM IV (PMX) 100 ML IVPB SCH ×5 (06:43→23:51)
[2019-03-30] MEDS: ENOXAPARIN 40 MG/0.4 ML SYG SC SCH (07:03)
[2019-03-30 07:28] VITALS: BP 110/52; PULSE 72; RESP 19
[2019-03-30] MEDS: FAMOTIDINE 20 MG INJ IV SCH ×2 (10:49→21:39)
[2019-03-30] MEDS: ACETAMINOPHEN 325 MG TAB PO PRN ×2 (10:54)
[2019-03-30 13:28] VITALS: BP 119/60; PULSE 82; RESP 18
--- NOTE | 2019-03-30 15:06 | CONS ---
Assessment/Plan Assessment/Plan Hospital Course (Demo Recall) Patient is alert looks comfortable complaining of pain no fevers overnight. WBC 22.8 platelets 264 neutrophils 87.3 BUN 17 creatinine 0.94 Antimicrobials: Zosyn Physical examination: Well-nourished well-developed middle-aged woman who is alert in no distress. Head atraumatic normocephalic sclera nonicteric. Neck is supple chest rise symmetrical breath sounds clear. Heart: S1-S2. Abdomen obese, soft some tenderness on palpation. Patient has right lower quadrant DOMINGA with serosanguineous drainage Assessment: 1. Acute appendicitis status post laparoscopic appendectomy 2. Systemic inflammatory response syndrome with ongoing leukocytosis secondary to #1 Plan: Patient is clinically stable, we will continue her on current antibiotics, monitor white blood cell count, follow recommendations of surgical team Consultation Date/Type/Reason Admit Date/Time Mar 29, 2019 at 08:15 Initial Consult Date Type of Consult id Date/Time of Note DATE: 03/30/19 TIME: 15:05 Exam/Review of Systems Exam Vitals Vital Signs Date Temp Pulse Resp B/P (MAP) Pulse Ox O2 O2 Flow FiO2 Time Delivery Rate 03/30/19 97.2 82 18 119/60 97 13:28 (79) 03/28/19 Nasal 2.0 21:25 Cannula Intake and Output 03/29/19 03/29/19 03/30/19 1515:00 23:00 07:00 IntakeIntake Total 400 ml 900 ml 830 ml OutputOutput Total 40 ml 35 ml BalanceBalance 400 ml 860 ml 795 ml Results Result Diagram: 03/30/19 0447 03/30/19 0447 Results 24hrs Laboratory Tests Test 03/30/19 04:47 White Blood Count 22.8 H Red Blood Count 3.92 L Hemoglobin 11.5 L Hematocrit 36.7 L Mean Corpuscular Volume 93.6 Mean Corpuscular Hemoglobin 29.3 Mean Corpuscular Hemoglobin Concent 31.3 L Red Cell Distribution Width 12.7 Platelet Count 264 Mean Platelet Volume 12.5 H Immature Granulocytes % 0.700 H Neutrophils % 87.3 H Lymphocytes % 6.5 L Monocytes % 5.3 Eosinophils % 0.0 Basophils % 0.2 Nucleated Red Blood Cells % 0.0 Immature Granulocytes # 0.160 H Neutrophils # 19.9 H Lymphocytes # 1.5 Monocytes # 1.2 H Eosinophils # 0.0 Basophils # 0.0 Nucleated Red Blood Cells # 0.0 Sodium Level 143 Potassium Level 4.0 Chloride Level 110 Carbon Dioxide Level 24 Anion Gap 9 Blood Urea Nitrogen 17 Creatinine 0.94 Est Glomerular Filtrat Rate mL/min > 60 Glucose Level 113 # Calcium Level 9.0 Magnesium Level 2.3 Total Bilirubin 0.4 Direct Bilirubin 0.00 Indirect Bilirubin 0.4 Aspartate Amino Transf (AST/SGOT) 89 H Alanine Aminotransferase (ALT/SGPT) 185 H Alkaline Phosphatase 169 H Total Protein 6.6 Albumin 3.4 Globulin 3.20 Albumin/Globulin Ratio 1.06 Medications Medication Current Medications Famotidine (Pepcid Iv) 20 mg Q12 IV Last administered on 03/30/19 10:49; Admin Dose 20 MG; Start 03/28/19 at 21:00 Piperacillin Sod/ Tazobactam Sod 100 ml @ 200 mls/hr Q6 IVPB Last administered on 03/30/19 12:59; Admin Dose 200 MLS/HR; Start 03/29/19 at 00:00 Ondansetron HCl (Zofran Inj) 4 mg Q6H PRN IV NAUSEA AND/OR VOMITING Last administered on 03/29/19 06:46; Admin Dose 4 MG; Start 03/28/19 at 19:30 Acetaminophen (Tylenol Tab) 650 mg Q6H PRN PO PAIN LEVEL 1-3 OR FEVER Last administered on 03/30/19 10:54; Admin Dose 650 MG; Start 03/28/19 at 19:30 Ibuprofen (Motrin) 600 mg Q6H PRN PO PAIN LEVEL 1-3; Start 03/28/19 at 19:30 Morphine Sulfate (morphine) 2 mg Q2H PRN IV PAIN LEVEL 8-10; Start 03/28/19 at 19:30 Acetaminophen/ Hydrocodone Bitart ([place] (5/325)) 1 tab Q6H PRN PO PAIN LEVEL 4-7; Start 03/28/19 at 19:30 Enoxaparin Sodium (Lovenox) 40 mg DAILY@07 SC Last administered on 03/30/19 07:03; Admin Dose 40 MG; Start 03/29/19 at 07:00 Sodium Chloride 1,000 ml @ 100 mls/hr Q10H IV Last administered on 03/30/19 04:19; Admin Dose 100 MLS/HR; Start 03/29/19 at 13:00 STANFORD RIZO NP Mar 30, 2019 15:05
[2019-03-30] MEDS: HYDROCODONE/APAP (5/325) TAB PO PRN (16:21)
--- NOTE | 2019-03-30 16:23 | PN ---
Date/Time of Note Date/Time of Note DATE: 03/30/19 TIME: 16:22 Assessment/Plan Lines/Catheters IV Catheter Type (from Nrs): Peripheral IV Murray in Place (from Nrs): No Assessment/Plan Assessment/Plan Postop day #2 status post lap appendectomy WBC still elevated. Has been afebrile since surgery. Okay to DC home tomorrow on oral antibiotics if white count decreases Subjective 24 Hr Interval Summary Constitutional: no complaints, improved, BM, flatus Feeding: advancing diet Pain Control: well controlled Exam/Review of Systems Vital Signs Vitals Vital Signs Date Temp Pulse Resp B/P (MAP) Pulse Ox O2 O2 Flow FiO2 Time Delivery Rate 03/30/19 97.2 82 18 119/60 97 13:28 (79) 03/28/19 Nasal 2.0 21:25 Cannula Intake and Output 03/29/19 03/29/19 03/30/19 1515:00 23:00 07:00 IntakeIntake Total 400 ml 900 ml 830 ml OutputOutput Total 40 ml 35 ml BalanceBalance 400 ml 860 ml 795 ml Exam Constitutional: alert, oriented, well developed Gastrointestinal: soft, non-tender Drains DOMINGA with serous drainage Results Result Diagram: 03/30/19 0447 03/30/19 0447 AMOS ARNOLD MD Mar 30, 2019 16:23
--- NOTE | 2019-03-30 16:47 | PN ---
Date/Time of Note Date/Time of Note DATE: 03/30/19 TIME: 16:43 Assessment/Plan VTE Prophylaxis Risk score (from Ns)>0 risk: 2 SCD applied (from Ns): Yes SCD contraindicated: low risk/ambulating Pharmacological prophylaxis: NA/contraindicated Pharm contraindication: low risk/ambulating Lines/Catheters IV C[facility]ter Type (from [facility]): Peripheral IV Urinary Cath still in place: No Assessment/Plan Hospital Course 58 yo F with no significantly past medical history presents to ED with worsening abdominal pain. 1. Acute appendicitis, perforated -Status post lap appendectomy, with drain -Continue broad-spectrum IV antibiotic 2. sepsis present on admission - secondary to #1: improved 3. elevated LFT - hepatitis panel, negative, levels have been stable, likely chronic, patient has hepatic cyst on CT -no further intervention required acutely, patient notified, PCP to monitor 4. ?UTI - asymptomatic - culture with contaminant - already on antibiotics 5. Diet -Regular for now Dispo: -plan to d/c on orals tomorrow per surgery if wbc trends down, continue current care Result Diagram: 03/30/19 0447 03/30/19 0447 Results 24hrs Laboratory Tests Test 03/30/19 04:47 White Blood Count 22.8 H Red Blood Count 3.92 L Hemoglobin 11.5 L Hematocrit 36.7 L Mean Corpuscular Volume 93.6 Mean Corpuscular Hemoglobin 29.3 Mean Corpuscular Hemoglobin Concent 31.3 L Red Cell Distribution Width 12.7 Platelet Count 264 Mean Platelet Volume 12.5 H Immature Granulocytes % 0.700 H Neutrophils % 87.3 H Lymphocytes % 6.5 L Monocytes % 5.3 Eosinophils % 0.0 Basophils % 0.2 Nucleated Red Blood Cells % 0.0 Immature Granulocytes # 0.160 H Neutrophils # 19.9 H Lymphocytes # 1.5 Monocytes # 1.2 H Eosinophils # 0.0 Basophils # 0.0 Nucleated Red Blood Cells # 0.0 Sodium Level 143 Potassium Level 4.0 Chloride Level 110 Carbon Dioxide Level 24 Anion Gap 9 Blood Urea Nitrogen 17 Creatinine 0.94 Est Glomerular Filtrat Rate mL/min > 60 Glucose Level 113 # Calcium Level 9.0 Magnesium Level 2.3 Total Bilirubin 0.4 Direct Bilirubin 0.00 Indirect Bilirubin 0.4 Aspartate Amino Transf (AST/SGOT) 89 H Alanine Aminotransferase (ALT/SGPT) 185 H Alkaline Phosphatase 169 H Total Protein 6.6 Albumin 3.4 Globulin 3.20 Albumin/Globulin Ratio 1.06 Subjective 24 Hr Interval Summary Free Text/Dictation mild abd pain, passing gas Exam/Review of Systems Exam Vitals Vital Signs Date Temp Pulse Resp B/P (MAP) Pulse Ox O2 O2 Flow FiO2 Time Delivery Rate 03/30/19 97.2 82 18 119/60 97 13:28 (79) 03/28/19 Nasal 2.0 21:25 Cannula Intake and Output 03/29/19 03/29/19 03/30/19 1515:00 23:00 07:00 IntakeIntake Total 400 ml 900 ml 830 ml OutputOutput Total 40 ml 35 ml BalanceBalance 400 ml 860 ml 795 ml Constitutional: alert, oriented Head: normocephalic Eyes: PERRL ENMT: mucosa pink and moist Neck: supple Respiratory: clear to auscultation Cardiovascular: regular rate and rhythm Gastrointestinal: soft, bowel sounds, distended, surgical scars, other (drain ) Extremities: No edema Neurological: nl mental status, nl speech Results Results 24hrs Laboratory Tests Test 03/30/19 04:47 White Blood Count 22.8 H Red Blood Count 3.92 L Hemoglobin 11.5 L Hematocrit 36.7 L Mean Corpuscular Volume 93.6 Mean Corpuscular Hemoglobin 29.3 Mean Corpuscular Hemoglobin Concent 31.3 L Red Cell Distribution Width 12.7 Platelet Count 264 Mean Platelet Volume 12.5 H Immature Granulocytes % 0.700 H Neutrophils % 87.3 H Lymphocytes % 6.5 L Monocytes % 5.3 Eosinophils % 0.0 Basophils % 0.2 Nucleated Red Blood Cells % 0.0 Immature Granulocytes # 0.160 H Neutrophils # 19.9 H Lymphocytes # 1.5 Monocytes # 1.2 H Eosinophils # 0.0 Basophils # 0.0 Nucleated Red Blood Cells # 0.0 Sodium Level 143 Potassium Level 4.0 Chloride Level 110 Carbon Dioxide Level 24 Anion Gap 9 Blood Urea Nitrogen 17 Creatinine 0.94 Est Glomerular Filtrat Rate mL/min > 60 Glucose Level 113 # Calcium Level 9.0 Magnesium Level 2.3 Total Bilirubin 0.4 Direct Bilirubin 0.00 Indirect Bilirubin 0.4 Aspartate Amino Transf (AST/SGOT) 89 H Alanine Aminotransferase (ALT/SGPT) 185 H Alkaline Phosphatase 169 H Total Protein 6.6 Albumin 3.4 Globulin 3.20 Albumin/Globulin Ratio 1.06 Imaging Imaging PROCEDURE: CT Abdomen and pelvis with contrast. CLINICAL INDICATION: Abdominal pain. TECHNIQUE: CT scan of the abdomen and pelvis with contrast was performed on a multi-detector high-resolution CT scanner. The patient was scanned following the uncomplicated administration of 100 cc of Omnipaque 300 intravenous contrast. Coronal and sagittal reformatted images were obtained from the axial source images. Images were reviewed on a high-resolution PACS workstation. DICOM images are available. One or more of the following dose reduction techniques were used: - Automated exposure control. - Adjustment of the mA and/or kV according to patient size. - Use of iterative reconstruction technique. Exam CTD/vol = 7.58 mGy. Total exam DLP = 439.89 mGy-cm. COMPARISON: None. FINDINGS: Evaluation of the lung bases demonstrates no pleural or parenchymal disease. Abdomen: The liver is normal in size. There is a cyst within the left lobe of the liver measuring 1.6 x 2.6 cm. The patient status post cholecystectomy with mild dilatation of the biliary tree. The spleen, pancreas and bilateral adrenal glands are within normal limits. Bilateral kidneys are normal in size with symmetric enhancement. There are small right renal cysts. No hydronephrosis or hydroureter. There is no retroperitoneal adenopathy. The abdominal aorta is of normal caliber. There is a distended and thick-walled appendix extending medial to the cecum measuring up to 15 mm in diameter with mild to moderate adjacent stranding. There is no bowel obstruction or free air. There are scattered sigmoid d iverticuli. Pelvis: The bladder is unremarkable. The uterus and adnexa are within normal limits. There is moderate pelvic stranding and mild free fluid. There is no significant pelvic adenopathy. Evaluation of the osseous structures demonstrates no suspicious lytic or blastic lesion. IMPRESSION: Appendicitis. Moderate pelvic stranding and mild free fluid. Scattered sigmoid diverticuli. Hepatic cyst. Status post cholecystectomy with mild dilatation of the biliary tree. .Alex Wilson MD, MD Date Time Electronically viewed and signed by .Alex Wilson MD, MD on 03/28/2019 17:57 .T/ CC: FLEX POLANCO MD [phone] Medications Medication Current Medications Famotidine (Pepcid Iv) 20 mg Q12 IV Last administered on 03/30/19 10:49; Admin Dose 20 MG; Start 03/28/19 at 21:00 Piperacillin Sod/ Tazobactam Sod 100 ml @ 200 mls/hr Q6 IVPB Last administered on 03/30/19 12:59; Admin Dose 200 MLS/HR; Start 03/29/19 at 00:00 Ondansetron HCl (Zofran Inj) 4 mg Q6H PRN IV NAUSEA AND/OR VOMITING Last admi nistered on 03/29/19 06:46; Admin Dose 4 MG; Start 03/28/19 at 19:30 Acetaminophen (Tylenol Tab) 650 mg Q6H PRN PO PAIN LEVEL 1-3 OR FEVER Last administered on 03/30/19 10:54; Admin Dose 650 MG; Start 03/28/19 at 19:30 Ibuprofen (Motrin) 600 mg Q6H PRN PO PAIN LEVEL 1-3; Start 03/28/19 at 19:30 Morphine Sulfate (morphine) 2 mg Q2H PRN IV PAIN LEVEL 8-10; Start 03/28/19 at 19:30 Acetaminophen/ Hydrocodone Bitart ([place] (5/325)) 1 tab Q6H PRN PO PAIN LEVEL 4-7 Last administered on 03/30/19 16:21; Admin Dose 1 TAB; Start 03/28/19 at 19:30 Enoxaparin Sodium (Lovenox) 40 mg DAILY@07 SC Last administered on 03/30/19 07:03; Admin Dose 40 MG; Start 03/29/19 at 07:00 Sodium Chloride 1,000 ml @ 100 mls/hr Q10H IV Last administered on 03/30/19 04:19; Admin Dose 100 MLS/HR; Start 03/29/19 at 13:00 JENN SANTA Mar 30, 2019 16:47
[2019-03-30 19:28] VITALS: BP 96/52; PULSE 85; RESP 16
[2019-03-31 01:30] VITALS: BP 105/57; PULSE 72; RESP 18
[2019-03-31] MEDS: HYDROCODONE/APAP (5/325) TAB PO PRN (01:38)
[2019-03-31] MEDS: SOD CHLORIDE 0.9% 1,000 ML IV SCH ×2 (04:18→15:41)
[2019-03-31] MEDS: PIPER-TAZO 3.375 GM IV (PMX) 100 ML IVPB SCH ×3 (06:44→18:00)
[2019-03-31] MEDS: ENOXAPARIN 40 MG/0.4 ML SYG SC SCH (06:47)
[2019-03-31 08:07] VITALS: BP 96/55; PULSE 77; RESP 18
[2019-03-31] MEDS: FAMOTIDINE 20 MG INJ IV SCH (09:13)
[2019-03-31] MEDS: ACETAMINOPHEN 325 MG TAB PO PRN (13:29)
--- NOTE | 2019-03-31 15:39 | CONS ---
Assessment/Plan Assessment/Plan Hospital Course (Demo Recall) Alert feels better no fevers overnight WBC today 13.3 neutrophils 76.8 BUN 17 creatinine 0.94 Antimicrobials: Zosyn Physical examination: Well-nourished well-developed middle-aged woman who is alert in no distress. Head atraumatic normocephalic sclera nonicteric. Neck is supple chest rise symmetrical breath sounds clear. Heart: S1-S2. Abdomen obese, soft bowel tones present Assessment: 1. Acute appendicitis status post laparoscopic appendectomy 2. Systemic inflammatory response syndrome with ongoing leukocytosis secondary to #1 Plan: Remains stable, WBC trending down, continue present care and antibiotics follow surgical recommendations. Anticipate discharge on oral Augmentin to complete 7 days postoperatively Consultation Date/Type/Reason Admit Date/Time Mar 29, 2019 at 08:15 Initial Consult Date Type of Consult id Date/Time of Note DATE: 03/31/19 TIME: 15:38 Exam/Review of Systems Exam Vitals Vital Signs Date Temp Pulse Resp B/P (MAP) Pulse Ox O2 O2 Flow FiO2 Time Delivery Rate 03/31/19 98.0 77 18 96/55 (69) 95 Room Air 08:07 03/28/19 2.0 21:25 Intake and Output 03/30/19 03/30/19 03/31/19 1515:00 23:00 07:00 IntakeIntake Total 200 ml 1100 ml 1200 ml OutputOutput Total 20 ml 370 ml BalanceBalance 180 ml 1100 ml 830 ml Results Result Diagram: 03/31/19 0426 03/30/19 0447 Results 24hrs Laboratory Tests Test 03/31/19 04:26 White Blood Count 13.3 #H Red Blood Count 3.93 L Hemoglobin 11.6 L Hematocrit 36.6 L Mean Corpuscular Volume 93.1 Mean Corpuscular Hemoglobin 29.5 Mean Corpuscular Hemoglobin Concent 31.7 L Red Cell Distribution Width 13.0 Platelet Count 299 Mean Platelet Volume 12.1 H Immature Granulocytes % 0.500 H Neutrophils % 76.8 Lymphocytes % 11.6 L Monocytes % 9.5 Eosinophils % 1.1 Basophils % 0.5 Nucleated Red Blood Cells % 0.0 Immature Granulocytes # 0.060 H Neutrophils # 10.2 H Lymphocytes # 1.6 Monocytes # 1.3 H Eosinophils # 0.1 Basophils # 0.1 Nucleated Red Blood Cells # 0.0 Medications Medication Current Medications Famotidine (Pepcid Iv) 20 mg Q12 IV Last administered on 03/31/19 09:13; Admin Dose 20 MG; Start 03/28/19 at 21:00 Piperacillin Sod/ Tazobactam Sod 100 ml @ 200 mls/hr Q6 IVPB Last administered on 03/31/19 13:21; Admin Dose 200 MLS/HR; Start 03/29/19 at 00:00 Ondansetron HCl (Zofran Inj) 4 mg Q6H PRN IV NAUSEA AND/OR VOMITING Last administered on 03/29/19 06:46; Admin Dose 4 MG; Start 03/28/19 at 19:30 Acetaminophen (Tylenol Tab) 650 mg Q6H PRN PO PAIN LEVEL 1-3 OR FEVER Last administered on 03/31/19 13:29; Admin Dose 650 MG; Start 03/28/19 at 19:30 Ibuprofen (Motrin) 600 mg Q6H PRN PO PAIN LEVEL 1-3; Start 03/28/19 at 19:30 Morphine Sulfate (morphine) 2 mg Q2H PRN IV PAIN LEVEL 8-10; Start 03/28/19 at 19:30 Acetaminophen/ Hydrocodone Bitart ([place] (5/325)) 1 tab Q6H PRN PO PAIN LEVEL 4-7 Last administered on 03/31/19 01:38; Admin Dose 1 TAB; Start 03/28/19 at 19:30 Enoxaparin Sodium (Lovenox) 40 mg DAILY@07 SC Last administered on 03/31/19 06:47; Admin Dose 40 MG; Start 03/29/19 at 07:00 Sodium Chloride 1,000 ml @ 100 mls/hr Q10H IV Last administered on 03/31/19 04:18; Admin Dose 100 MLS/HR; Start 03/29/19 at 13:00 STANFORD RIZO NP Mar 31, 2019 15:39
--- NOTE | 2019-03-31 15:44 | PDOCDIS ---
Discharge Instructions CONDITION [id number] Patient Condition: [id number] Stable HOME CARE INSTRUCTIONS: [id number] Diet Instructions: Yegia2d Regular [id number] Special Diet: [id number] start with a bland soft diet and advance gently ACTIVITY: [id number] Activity Restrictions: [id number] Slowly Increase Activity Rest between Activity Avoid heavy lifting [id number] Bathing Restrictions: Icwew6c Shower FOLLOW UP/APPOINTMENTS Follow-up Plan The doctor who did your surgery is Dr. Butt. He wants to see you next Friday in his office to take out your drain. Call the number below, they will give you further information. Also they will be able to answer any questions you have. El doctor que te hizo la ciruga es el Dr. Butt. Quiere verte el prximo ale en merrill oficina para sacar tu des. Llame al nmero de abajo, que le linda ms cruz. Adolfo podrn responder cualquier pregunta que tenga. Name, Degree: Erick Butt MD Specialty: General Surgery Comments: Office Address: [address] [facility] [address] [place] [id number] Office Office Fax: . JENN SANTA Mar 31, 2019 15:44
--- NOTE | 2019-03-31 16:03 | DS ---
DATE OF ADMISSION: 03/29/2019 DATE OF DISCHARGE: 03/31/2019 FINAL DIAGNOSES: A 58-year-old female with no significant past medical history who presented to the emergency room with abdominal pain and was managed for the followin. Acute appendicitis, perforated, status post laparoscopic appendectomy and drain placement. Surge ry was done 03/28/2019. The patient had postoperative antibiotics and stay due to perforation and si gnificant leukocytosis. 2. Sepsis, present on admission, secondary to #1: Improved. 3. Elevated liver function tests, determined to be chronic, with evidence of hepatic cyst on CT, for which no further intervention is required at this time, just the patient has been notified to have h er primary care doctor monitor closely. 4. Incidental finding of asymptomatic possible urinary tract infection. The culture grew out contam inants. The patient is status post at least 3 days of antibiotics intravenously. CONSULTANTS ON THE CASE: Dr. Erick Butt for general surgery, Dr. Zacarias Guzman for infectious dis ease. INTERVENTIONS: Laparoscopic appendectomy and drain placement. DISPOSITION: The patient is going to be discharged to home - He will follow up with Dr. Butt per is instructions. ACTIVITIES: As tolerated. The patient is to avoid heavy lifting for the next week, nothing greater than 10 pounds. RECOMMENDED DIET: The patient is discharged on a regular diet. DISCHARGE MEDICATIONS: For a complete list of discharge medications, please review the patient's dis charge medication list. Time spent on discharge coordination has been more than half an hour. Dictated By: JENN SANTA MD BA/NTS Conf#: [id number] DID#: [id number] CC: TOMI AMOR MD;*EndCC*
== END 2019-03-31 18:52 | disposition home or self-care (01) | DRG 853 ==
LOC: E/R 14:52 → SDS 19:20 → MS1 22:00 → OBSVTOIN 03-29 08:15
PROVIDERS: ADMIT Internal Medicine; ATTEND Family Medicine
PROC: 0DTJ4ZZ Resection of Appendix, Percutaneous Endoscopic Approach (ICD-10-PCS; principal; 2019-03-28 19:00)
DX: A41.9 Sepsis, unspecified organism (principal); K35.32 Acute appendicitis with perforation, localized peritonitis, and gangrene, without abscess; N39.0 Urinary tract infection, site not specified
CPT/HCPCS: 74177; 80053; 81001; 82150; 83690; 83735; 84484; 85025; 85610; 85730; 86704; 86709; 86803; 87086; 87340; 88304; 93005; 96361; 96374; 96375; G0378; J0690; J1100; J1170; J1650; J1885; J2250; J2270; J2405; J2543; J2765; J2795; J3010; J3480; J7030; Q9967